=== PATIENT | female | born 2000 | race Caucasian/White ===

== ENCOUNTER 2022-05-10 18:36 | Emergency (ER) | payer SELFPAY ==
[2022-05-10 18:37] VITALS: BP 121/87; PULSE 88; RESP 16; TEMP 36.4; O2SAT 96; BMI 23.4
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
[2022-05-10 20:25] VITALS: BP 123/74; PULSE 83; RESP 15; O2SAT 99
== END 2022-05-10 20:26 | disposition home or self-care (01) ==
PROVIDERS: Emergency Provider Emergency Medicine; Visit Provider Emergency Medicine
DX: S93.409A Sprain of unspecified ligament of unspecified ankle, initial encounter (principal); V19.9XXA Pedal cyclist (driver) (passenger) injured in unspecified traffic accident, initial encounter; Y93.55 Activity, bike riding; Y99.9 Unspecified external cause status; Y92.9 Unspecified place or not applicable
CPT/HCPCS: 73610; 99282